=== PATIENT | female | born 1935 | race Asian ===

== ENCOUNTER 2018-12-31 15:38 | Inpatient (IN) | payer OTHER, MEDICAID ==
[~2018-12-31] VITALS: Ht 154.9 cm; Wt 55.8 kg
[2018-12-31 15:41] VITALS: BP 118/56
--- NOTE | 2018-12-31 15:41 | NUR ---
[facility] FOR [facility]/O RASH THROUGHOUT THE ABD AND TO THE GROIN REGION. PT IS APHASIC, SLIGHT FACIAL GRIMICING. AOX1, UNABLE TO MAKE HER NEEDS KNOWN. TO SEE THE PT. WILL CONTINUUE TO MONITOR PT.
--- NOTE | 2018-12-31 15:41 | NUR ---
BIBA TO BED 7
[2018-12-31] MEDS ORDERED: NACL 0.9% 1,000 ML IV SCH (16:58)
[2018-12-31] MEDS ORDERED: methylPREDNISolone SS 125 MG/2 ML VIAL IVP ONE (17:00)
[2018-12-31] MEDS ORDERED: ONDANSETRON 4 MG/2 ML VIAL IVP ONE (17:00)
[2018-12-31] MEDS ORDERED: ALBUTEROL 0.083% 2.5 MG/3 ML NEBU INH ONE (17:00)
[2018-12-31] MEDS ORDERED: FAMOTIDINE 20 MG/2 ML VIAL IVP ONE (17:00)
[2018-12-31] MEDS ORDERED: diphenhydrAMINE 50 MG/ML VIAL IVP ONE (17:00)
--- NOTE | 2018-12-31 17:19 | NUR ---
[facility] THERAPY AND RESPIRATORY DRUGS GIVEN ORDERED
[2018-12-31] MEDS ORDERED: ACET-2619 PO (17:37)
[2018-12-31] MEDS ORDERED: ATOR40TA PO (17:37)
[2018-12-31] MEDS ORDERED: AMLO10TA4 PO (17:37)
[2018-12-31] MEDS ORDERED: CILO100T PO (17:37)
[2018-12-31] MEDS ORDERED: BISA-213 RC (17:37)
[2018-12-31] MEDS ORDERED: CLIN300C2 PO (17:37)
[2018-12-31] MEDS ORDERED: CLOP75TA26 PO (17:37)
[2018-12-31] MEDS ORDERED: BEN50 PO (17:37)
[2018-12-31] MEDS ORDERED: MAGN400S60 PO (17:37)
[2018-12-31 18:21] LABS: ALBUMIN 3.3 g/dL (3.4-5.0); ANION GAP 16.8 (8-16); ASPARTATE AMINOTRANSFERASE 25 U/L (15-37); CHLORIDE 111 mmol/L (98-107); GLUCOSE 109 mg/dL (74-106); SODIUM SERUM 152 mmol/L (136-145); TOTAL BILIRUBIN 0.7 mg/dL (0.0-1.0); UREA NITROGEN, BLOOD 16 mg/dL (7-18)
--- NOTE | 2018-12-31 18:25 | NUR ---
STRAIGHT CAT DONE IN PT. URINE COLLECTED AND GIVEN TO NURSE QUALITY.
[2018-12-31 18:29] LABS: ACETONE, SERUM NEGATIVE (NEGATIVE)
[2018-12-31 18:38] LABS: POTASSIUM 2.8 mmol/L (3.5-5.1)
[2018-12-31 18:47] LABS: BASOPHILS # (AUTO) 0.1 K/uL (0.00-0.22); BASOPHILS % (AUTO) 0.4 % (0.0-2.0); EOSINOPHILS # (AUTO) 0.1 K/uL (0-0.4); EOSINOPHILS % (AUTO) 0.5 % (0.0-4.0); HEMATOCRIT 45.1 % (36-48); HEMOGLOBIN 14.7 g/dL (12.0-16.0); LYMPHOCYTES # (AUTO) 4.4 K/uL (2.5-16.5); LYMPHOCYTES % (AUTO) 22.7 % (20.5-51.1); MEAN CORPUSCULAR HEMOGLOBIN 30 pg (27-31); MEAN CORPUSCULAR HGB CONC 33 g/dL (33-37); MEAN CORPUSCULAR VOLUME 92.7 fL (80-94); MONOCYTES # (AUTO) 1.4 K/uL (0.8-1.0); MONOCYTES % (AUTO) 7.5 % (1.7-9.3); NEUTROPHILS # (AUTO) 13.3 K/uL (1.8-7.7); NEUTROPHILS % (AUTO) 68.9 % (42.2-75.2); PLATELET COUNT (AUTO) 362 K/uL (140-450); RED BLOOD CELL COUNT(AUTO) 4.86 MIL/uL (4.20-5.40); RED CELL DISTRIBUTION WIDTH 14.5 % (11.6-13.7)
[2018-12-31 18:53] LABS: WHITE BLOOD COUNT (AUTO) 19.2 K/uL (4.8-10.8)
--- NOTE | 2018-12-31 18:58 | NUR ---
pt taken to ct at this time
[2018-12-31 19:05] LABS: APPEARANCE,URINE SL CLOUDY (CLEAR); BILIRUBIN,URINE 1+ (NEGATIVE); BLOOD, URINE NEGATIVE (NEGATIVE); COLOR,URINE YELLOW (YELLOW); LEUKOCYTE ESTERASE ,URINE TRACE (NEGATIVE); NITRITE, URINE NEGATIVE (NEGATIVE); UGLUCOSE NEGATIVE (NEGATIVE)
--- NOTE | 2018-12-31 19:05 | NUR ---
REPORT GIVEN TO TAIWO CARLOS. PT STABLE. PENDING FOR ADMIT.
--- NOTE | 2018-12-31 19:09 | NUR ---
PT RETURN FROM CT
[2018-12-31 19:26] LABS: FREE T4 (FREE THYROXINE) 1.05 ng/dL (0.76-1.46); THYROID STIMULATING HORMONE 0.26 uIU/mL (0.34-3.74)
[2018-12-31 20:20] VITALS: BP 137/37
--- NOTE | 2018-12-31 20:20 | NUR ---
REPORT GIVEN AND CARE TRANSFERED TO [facility] ROOM 124B. TRANSFERED VIA RNEY WITH VSS. PT NON-VERBAL. FOLLOWS COMMANDS. MAKES EYE CONTACT.
--- NOTE | 2018-12-31 20:20 | NUR ---
PT ARRIVED TO UNIT VIA GURNEY AND WAS TRANSFERRED TO UNIT BED WITH ASSISTANCE. RECEIVED REPORT FROM ER NURSE TERRANCE-TAIWO AT BEDSIDE. PT RESTING IN BED, AOX1- NON-VERBAL FOLLOWS SOME COMMANDS AND APHASIC, ON ROOM AIR WITH RIGHT HAND #22G. 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 RED RASH ON BODY (ANTERIOR AND POSTERIOR) AND BEATRIS/ANAL AREA. NON AMBULATORY-BEDBOUND. VITAL SIGNS TAKEN AND TOLERATED WELL. MRSA SWAB COLLECTED. DISCUSSED PLAN OF CARE HOWEVER PT DID NOT INDICATE UNDERSTANDING. NO S/S OF RESPIRATORY DISTRESS OR DISCOMFORT NOTED AT THIS TIME. BED IN LOWEST POSITION, BED BREAKS ON, BOTH SIDE RAILS UP AND FALL PRECAUTIONS IN PLACE. BEDSIDE TABLE AND CALL LIGHT ARE WITHIN REACH. WILL CONTINUE TO MONITOR.
[2018-12-31] MEDS ORDERED: KCL 20 MEQ/WATER INJ PREMIX 200 ML IV SCH (21:25)
--- NOTE | 2018-12-31 21:41 | NUR ---
SPOKE WITH SARAH TORRES AND MADE HIM AWARE OF LACTIC ACID 3.0, TROPONIN 0.608, AND POTASSIUM 2.8. RECEIVED ORDERS TO ADMINISTER K RIDER 40MEQ IV. MEDICATION ADMINISTERED AND TOLERATED WELL. ALSO RECEIVED ORDERS TO PLACE PT UNDER DNR CODE STATUS AND CCHO 60GM DIET DUE TO DM. MD IS TO PLACE HOME MEDS LATER. NO S/S OF RESPIRATORY DISTRESS OR DISCOMFORT NOTED AT THIS TIME. WILL CONTINUE TO MONITOR.
[2018-12-31] MEDS ORDERED: diphenhydrAMINE 50 MG CAP PO SCH (22:25)
[2018-12-31] MEDS ORDERED: ACETAMINOPHEN 325 MG TAB PO PRN (22:25)
[2018-12-31] MEDS ORDERED: NON-FORMULARY ITEM (Bisacodyl (Dulcolax) 10 MG) RC SCH (22:25)
--- NOTE | 2018-12-31 22:26 | NUR ---
CALLED SARAH TORRES REGARDING INCREASING LACTIC ACID TO 4.9- RECEIVED ORDERS FOR LACTATED RINGERS @100ML/HR AND FIRST DOSE OF LEVAQUIN 500MG AT 100ML/HR. WILL NEED NEW IV SITE.
[2018-12-31] MEDS ORDERED: LORazepam 2 MG/ML VIAL IVP PRN (22:30)
[2018-12-31] MEDS ORDERED: INSULIN LISPRO SLIDING SCALE 100 UNITS/ML VIAL SUBQ PRN (22:30)
[2018-12-31] MEDS ORDERED: DEXTROSE 50% 50 ML SYR IVP PRN (22:30)
[2018-12-31] MEDS ORDERED: HYDROcodone/APAP 5/325 MG 1 TAB TAB PO PRN (22:30)
[2018-12-31] MEDS ORDERED: ONDANSETRON 4 MG/2 ML VIAL IVP PRN (22:30)
[2018-12-31] MEDS ORDERED: LEVOFLOXACIN 500 MG/D5W PREMIX 100 ML IV SCH (23:00)
[2018-12-31] MEDS: LACTATED RINGERS 1,000 ML IV SCH (23:24)
--- NOTE | 2018-12-31 23:24 | NUR ---
NEW IV SITE ON RIGHT FA #22G. LACTATED RINGERS AND LEVAQUIN ADMINISTER ON THIS NEW IV SITE. PT TOLERATING WELL. NO S/S OF RESPIRATORY DISTRESS OR DISCOMFORT NOTED AT THIS TIME. WILL CONTINUE TO MONITOR.
[2018-12-31 23:37] LABS: CREATINE KINASE MB 5.5 ng/mL (0-3.6)
--- NOTE | 2018-12-31 23:48 | NUR ---
SECOND BAG OF K RIDER GIVEN AND TOLERATING WELL. NO S/S OF RESPIRATORY DISTRESS OR DISCOMFORT NOTED AT THIS TIME. WILL CONTINUE TO MONITOR.
[2019-01-01] VITALS: BP 91/55
--- NOTE | 2019-01-01 | NUR ---
VITAL SIGNS TAKEN AND TOLERATED WELL. NO S/S OF RESPIRATORY DISTRESS OR DISCOMFORT NOTED AT THIS TIME. WILL CONTINUE TO MONITOR.
--- NOTE | 2019-01-01 02:00 | NUR ---
PT SLEEPING IN BED. NO S/S OF RESPIRATORY DISTRESS OR DISCOMFORT NOTED AT THIS TIME. WILL CONTINUE TO MONITOR.
[2019-01-01 04:00] VITALS: BP 143/55
--- NOTE | 2019-01-01 04:00 | NUR ---
VITAL SIGNS TAKEN AND TOLERATED WELL. NO S/S OF RESPIRATORY DISTRESS OR DISCOMFORT NOTED AT THIS TIME. WILL CONTINUE TO MONITOR.
[2019-01-01] MEDS: BLOOD GLUCOSE MONITORING 1 DEV DEV FS SCH ×4 (06:17→20:14)
--- NOTE | 2019-01-01 06:17 | NUR ---
BLOOD GLUCOSE 121- NO INSULIN COVERAGE NEEDED.
--- NOTE | 2019-01-01 07:05 | NUR ---
RECEIVED BEDSIDE REPORT FROM TAIWO QUIROZ. PATIENT ON TELE MONITOR AND STANDARD PRECAUTIONS IN PLACE. PATIENT AAOX1 AND ON ROOM AIR, NO DISTRESS NOTED. PATIENT BEDREST, INCONTINENT, AND RASH ON R UPPER ABDOMEN SPREADING TO BACK. IV ON L H 22G AND L FA 22G BOTH PATENT AND INTACT. BED IN LOW POSITION, CALL LIGHT WITHIN REACH, SIDE RAILS X2 UP
[2019-01-01 07:37] LABS: BASOPHILS % (AUTO) 0.2 % (0.0-2.0); EOSINOPHILS % (AUTO) 0.1 % (0.0-4.0); HEMATOCRIT 41.5 % (36-48); HEMOGLOBIN 13.5 g/dL (12.0-16.0); LYMPHOCYTES # (AUTO) 1.3 K/uL (2.5-16.5); MEAN CORPUSCULAR HEMOGLOBIN 30 pg (27-31); MEAN CORPUSCULAR HGB CONC 32 g/dL (33-37); MEAN CORPUSCULAR VOLUME 92.6 fL (80-94); MONOCYTES # (AUTO) 0.3 K/uL (0.8-1.0); NEUTROPHILS # (AUTO) 12.8 K/uL (1.8-7.7); NEUTROPHILS % (AUTO) 88.7 % (42.2-75.2); PLATELET COUNT (AUTO) 303 K/uL (140-450); RED BLOOD CELL COUNT(AUTO) 4.48 MIL/uL (4.20-5.40); RED CELL DISTRIBUTION WIDTH 14.5 % (11.6-13.7); WHITE BLOOD COUNT (AUTO) 14.5 K/uL (4.8-10.8)
[2019-01-01] MEDS ORDERED: MAGNESIUM HYDROXIDE 2400 MG/30 ML UDC PO PRN (07:47)
[2019-01-01] MEDS ORDERED: BISACODYL 10 MG SUPP RC PRN (07:50)
[2019-01-01 08:00] VITALS: BP 121/58
[2019-01-01] MEDS: LACTATED RINGERS 1,000 ML IV SCH (08:26)
--- NOTE | 2019-01-01 08:48 | NUR ---
PATIENT HAS BEEN SCREENED AND CATEGORIZED MODERATE NUTRITION RISK. PATIENT WILL BE SEEN WITHIN 3-5 DAYS OF ADMISSION. 01/03/19PRASANNA [address]
[2019-01-01 08:55] LABS: ANION GAP 15.5 (8-16); CARBON DIOXIDE 24.1 mmol/L (21-32); CHLORIDE 115 mmol/L (98-107); GLUCOSE 121 mg/dL (74-106); POTASSIUM 3.6 mmol/L (3.5-5.1); SODIUM SERUM 151 mmol/L (136-145)
[2019-01-01 08:56] LABS: ALBUMIN 2.7 g/dL (3.4-5.0); ASPARTATE AMINOTRANSFERASE 22 U/L (15-37); CREATININE 0.7 mg/dL (0.6-1.3); MAGNESIUM 2.2 mg/dL (1.8-2.4); PHOSPHORUS 2.6 mg/dL (2.5-4.9); TOTAL BILIRUBIN 0.4 mg/dL (0.0-1.0); UREA NITROGEN, BLOOD 11 mg/dL (7-18)
[2019-01-01 08:58] LABS: CREATINE KINASE MB 5.9 ng/mL (0-3.6)
[2019-01-01] MEDS ORDERED: CILOSTAZOL 100 MG PO SCH (09:00)
[2019-01-01] MEDS: CILOSTAZOL 100 MG TAB PO SCH ×3 (10:16→20:47)
[2019-01-01] MEDS: CLOPIDOGREL 75 MG TAB PO SCH (10:16)
[2019-01-01] MEDS: methylPREDNISolone SS 40 MG/ML VIAL IVP SCH ×2 (10:17→20:14)
[2019-01-01] MEDS: amLODIPine 5 MG TAB PO SCH (10:17)
--- NOTE | 2019-01-01 10:27 | NUR ---
ADMINISTERED SCHEDULED MEDS. PATIENT TOLERATED WELL
[2019-01-01 12:00] VITALS: BP 148/45
--- NOTE | 2019-01-01 12:20 | NUR ---
PATIENT SLEEPING, ON ROOM AIR, NO DISTRESS NOTED
[2019-01-01] MEDS: NACL 0.45% 1,000 ML IV SCH (13:13)
--- NOTE | 2019-01-01 14:00 | NUR ---
PATIENT ON R SIDE LYING POSITION, ON ROOM AIR, NO DISTRESS NOTED
[2019-01-01 16:00] VITALS: BP 126/39
--- NOTE | 2019-01-01 17:09 | NUR ---
REPOSITIONED PATIENT. PATIENT ON ROOM AIR AND CRYING, UNABLE TO EXPLAIN REASON, AAOX1
--- NOTE | 2019-01-01 19:04 | NUR ---
GAVE BEDSIDE REPORT TO TAIWO QUIROZ. PATIENT ENDORSED IN STABLE CONDITION
--- NOTE | 2019-01-01 19:05 | NUR ---
RECEIVED REPORT FROM DAY SHIFT NURSE DEVONTE-TAIWO AT BEDSIDE. PT RESTING IN BED, AOX1- NON-VERBAL FOLLOWS SOME COMMANDS AND APHASIC, ON ROOM AIR WITH RIGHT HAND #22G-SL AND RIGHT FA #22G- RUNNING NS @75ML/HR/. 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 RED RASH ON BODY (ANTERIOR AND POSTERIOR) AND BEATRIS/ANAL AREA. NON AMBULATORY-BEDBOUND. DISCUSSED PLAN OF CARE AND PT NODDED HEAD UP AND DOWN TO INDICATE UNDERSTANDING. NO S/S OF RESPIRATORY DISTRESS OR DISCOMFORT NOTED AT THIS TIME. BED IN LOWEST POSITION, BED BREAKS ON, BOTH SIDE RAILS UP AND FALL PRECAUTIONS IN PLACE. BEDSIDE TABLE AND CALL LIGHT ARE WITHIN REACH. WILL CONTINUE TO MONITOR.
[2019-01-01 20:00] VITALS: BP 132/44
--- NOTE | 2019-01-01 20:00 | NUR ---
VITAL SIGNS TAKEN AND TOLERATED WELL. BLOOD GLUCOSE 134- NO INSULIN COVERAGE NEEDED. NO S/S OF RESPIRATORY DISTRESS OR DISCOMFORT NOTED AT THIS TIME. WILL CONTINUE TO MONITOR.
[2019-01-01] MEDS: LEVOFLOXACIN 250 MG/D5 PREMIX 50 ML IV SCH (20:14)
[2019-01-01] MEDS: ATORVASTATIN 20 MG TAB PO SCH ×2 (20:14→20:47)
--- NOTE | 2019-01-01 20:14 | NUR ---
SCHEDULED MEDICATIONS LEVAQUIN AND SOLU-MEDROL GIVEN. CRUSHED LIPITOR AND PLETAL HOWEVER PT REFUSED TO TAKE MEDICATIONS- MEDICATIONS WASTED. RIGHT HAND IV SITE WOULD NOT FLUSH AND CAUSED PAIN. UPON UNBANDAGING SITE, CATHETER WAS BENT AND EXPOSED. REMOVED RIGHT HAND #22G IV SITE- CATHETER INTACT. PT TOLERATED WELL WITH MINIMAL BLEEDING. NO S/S OF RESPIRATORY DISTRESS OR DISCOMFORT NOTED AT THIS TIME. WILL CONTINUE TO MONITOR.
--- NOTE | 2019-01-01 22:00 | NUR ---
PT SLEEPING IN BED. NO S/S OF RESPIRATORY DISTRESS OR DISCOMFORT NOTED AT THIS TIME. WILL CONTINUE TO MONITOR.
[2019-01-02] VITALS: BP 134/42
--- NOTE | 2019-01-02 | NUR ---
VITAL SIGNS TAKEN AND TOLERATED WELL. NO S/S OF RESPIRATORY DISTRESS OR DISCOMFORT NOTED AT THIS TIME. WILL CONTINUE TO MONITOR.
[2019-01-02] MEDS: NACL 0.45% 1,000 ML IV SCH ×2 (02:00→04:00)
--- NOTE | 2019-01-02 02:00 | NUR ---
PT SLEEPING IN BED AT THIS TIME. NO S/S OF RESPIRATORY DISTRESS OR DISCOMFORT NOTED AT THIS TIME. WILL CONTINUE TO MONITOR.
[2019-01-02 04:00] VITALS: BP 142/37
--- NOTE | 2019-01-02 04:00 | NUR ---
VITAL SIGNS TAKEN AND TOLERATED WELL. NEW IVF BAG HUNG AND TOLERATED WELL. NO S/S OF RESPIRATORY DISTRESS OR DISCOMFORT NOTED AT THIS TIME. WILL CONTINUE TO MONITOR.
--- NOTE | 2019-01-02 06:00 | NUR ---
PT SLEEPING IN BED AT THIS TIME. NO S/S OF RESPIRATORY DISTRESS OR DISCOMFORT NOTED AT THIS TIME. WILL CONTINUE TO MONITOR.
[2019-01-02] MEDS: BLOOD GLUCOSE MONITORING 1 DEV DEV FS SCH ×4 (06:27→21:06)
--- NOTE | 2019-01-02 06:28 | NUR ---
BLOOD GLUCOSE 120- NO INSULIN COVERAGE NEEDED.
[2019-01-02 06:46] LABS: BASOPHILS % (AUTO) 0.1 % (0.0-2.0); HEMATOCRIT 38.9 % (36-48); HEMOGLOBIN 12.7 g/dL (12.0-16.0); LYMPHOCYTES # (AUTO) 1.3 K/uL (2.5-16.5); LYMPHOCYTES % (AUTO) 9.2 % (20.5-51.1); MEAN CORPUSCULAR HEMOGLOBIN 30 pg (27-31); MEAN CORPUSCULAR HGB CONC 33 g/dL (33-37); MEAN CORPUSCULAR VOLUME 91.8 fL (80-94); MONOCYTES # (AUTO) 0.5 K/uL (0.8-1.0); MONOCYTES % (AUTO) 3.1 % (1.7-9.3); NEUTROPHILS # (AUTO) 12.7 K/uL (1.8-7.7); NEUTROPHILS % (AUTO) 87.6 % (42.2-75.2); PLATELET COUNT (AUTO) 322 K/uL (140-450); RED BLOOD CELL COUNT(AUTO) 4.24 MIL/uL (4.20-5.40); RED CELL DISTRIBUTION WIDTH 14.4 % (11.6-13.7); WHITE BLOOD COUNT (AUTO) 14.5 K/uL (4.8-10.8)
[2019-01-02 07:10] LABS: ANION GAP 11.9 (8-16); CARBON DIOXIDE 27.5 mmol/L (21-32); CHLORIDE 112 mmol/L (98-107); CREATININE 0.7 mg/dL (0.6-1.3); GLUCOSE 125 mg/dL (74-106); POTASSIUM 3.4 mmol/L (3.5-5.1); SODIUM SERUM 148 mmol/L (136-145); UREA NITROGEN, BLOOD 9 mg/dL (7-18)
--- NOTE | 2019-01-02 07:10 | NUR ---
RECEIVED BEDSIDE REPORT FROM TAIWO QUIROZ. PATIENT AAOX1, NONVERBAL, FOLLOWS SOME COMMANDS. PATIENT ON TELE MONITOR AND STANDARD PRECAUTIONS IN PLACE. PATIENT ON ROOM AIR, RASHES ACROSS ABDOMEN AND BEATRIS AREA, UNABLE TO AMBULATE AND INCONTINENT. IV ON L FA 22G INFUSING 0.9% NS AT 75, IV PATENT AND INTACT. FALL RISK PROTOCOL IN PLACE, BED IN LOW POSITION, CALL LIGHT WITHIN REACH, SIDE RAILS X2 UP
[2019-01-02 07:24] LABS: PHOSPHORUS 2.4 mg/dL (2.5-4.9)
[2019-01-02 08:00] VITALS: BP 111/34
[2019-01-02] MEDS: CILOSTAZOL 100 MG TAB PO SCH ×2 (08:35→20:11)
[2019-01-02] MEDS: CLOPIDOGREL 75 MG TAB PO SCH (08:35)
[2019-01-02] MEDS: amLODIPine 5 MG TAB PO SCH (08:35)
[2019-01-02] MEDS: methylPREDNISolone SS 40 MG/ML VIAL IVP SCH ×2 (08:36→20:10)
--- NOTE | 2019-01-02 08:45 | NUR ---
DR. BANKS AT BEDSIDE, NOTIFIED OF K 3.4 AND OF PATIENT DROOLING WHILE EATING. ADMINISTERED SCHEDULED MEDS
[2019-01-02] MEDS ORDERED: POTASSIUM PHOSPHATE 15 MM in NACL 0.9% 250 ML IV SCH (09:30)
--- NOTE | 2019-01-02 10:01 | NUR ---
ADMINISTERED POTASSIUM PHOSPHATE FOR K 3.4. PATIENT SLEEPING, ON ROOM AIR, NO DISTRESS NOTED
[2019-01-02] MEDS: CHLORHEXADINE GLUC 2% CLOTH TP SCH (11:00)
[2019-01-02 12:00] VITALS: BP 118/39
[2019-01-02] MEDS: MUPIROCIN CA NASAL 2% 1GM TUBE NS SCH (12:59)
--- NOTE | 2019-01-02 12:59 | NUR ---
PATIENT TOLERATED HER LUNCH MUCH BETTER THAN YESTERDAY PER JOB GOMES. WILL ADMINISTER SCHEDULED MEDS
--- NOTE | 2019-01-02 13:58 | NUR ---
ADMINISTERED BENADRYL PRN FOR ITCHING AND RASH
[2019-01-02 16:00] VITALS: BP 115/35
--- NOTE | 2019-01-02 16:00 | NUR ---
PATIENT SLEEPING, ON ROOM AIR, NO DISTRESS NOTED
--- NOTE | 2019-01-02 19:26 | NUR ---
GAVE BEDSIDE REPORT TO TAIWO QUIÑONES. PATIENT ENDORSED IN STABLE CONDITION
--- NOTE | 2019-01-02 19:28 | NUR ---
RECEIVED PT FROM DONITA [facility]AVILL[facility] PT NON VERBAL, BED BOUND, RT ARM WEAKNESS , PT CAN MOVE LEFT ARM IV ;ON LEFT FA INFUSING WELL ON TELEMETRY SR , INVERTED T , PT HAS A GENERALIZED BODY RASH, REPOSITIONED , NOT DISTRESS NOTED , INITIAL ASSESSMENT DONE
[2019-01-02 20:00] VITALS: BP 106/43
[2019-01-02] MEDS: LEVOFLOXACIN 250 MG/D5 PREMIX 50 ML IV SCH (20:09)
[2019-01-02] MEDS: ATORVASTATIN 20 MG TAB PO SCH (20:11)
--- NOTE | 2019-01-02 21:30 | NUR ---
BLOOD SUGAR TEST WAS 94 PT REMAIN QUIET, REPOSITIONED Q2H LINEN CHANGED ON TELEMETRY SR INVERTED T
[2019-01-03] VITALS: BP 143/87
--- NOTE | 2019-01-03 | NUR ---
SPONGE BATH, GIVEN LINEN CHANGED NOT DISTRESS NOTED
[2019-01-03] MEDS: NACL 0.45% 1,000 ML IV SCH (01:10)
--- NOTE | 2019-01-03 03:00 | NUR ---
PT AWAKE, REPOSITIONED Q2H, IV ON LEFT FA INFUSING WELL, ON TELEMETRY SR , AND T DEPRESSION
[2019-01-03 04:00] VITALS: BP 153/52
--- NOTE | 2019-01-03 05:20 | NUR ---
LINEN CHANGED, REPOSITIONED Q2H NOT DISTRESS NOTED
[2019-01-03] MEDS: BLOOD GLUCOSE MONITORING 1 DEV DEV FS SCH ×2 (06:39→11:50)
--- NOTE | 2019-01-03 06:41 | NUR ---
BLOOD SUGAR TEST 122 NOT COVERAGE, PT SLEEPING NOT DISTRESS NOTED ON TELMETRY SR T DEPRESSION
[2019-01-03 06:56] LABS: BASOPHILS % (AUTO) 0.1 % (0.0-2.0); HEMATOCRIT 39.4 % (36-48); HEMOGLOBIN 13.1 g/dL (12.0-16.0); LYMPHOCYTES # (AUTO) 1.2 K/uL (2.5-16.5); LYMPHOCYTES % (AUTO) 12.1 % (20.5-51.1); MEAN CORPUSCULAR HEMOGLOBIN 30 pg (27-31); MEAN CORPUSCULAR HGB CONC 33 g/dL (33-37); MEAN CORPUSCULAR VOLUME 91.3 fL (80-94); MONOCYTES # (AUTO) 0.3 K/uL (0.8-1.0); MONOCYTES % (AUTO) 2.7 % (1.7-9.3); NEUTROPHILS # (AUTO) 8.5 K/uL (1.8-7.7); NEUTROPHILS % (AUTO) 85.1 % (42.2-75.2); PLATELET COUNT (AUTO) 317 K/uL (140-450); RED BLOOD CELL COUNT(AUTO) 4.32 MIL/uL (4.20-5.40); RED CELL DISTRIBUTION WIDTH 13.6 % (11.6-13.7)
[2019-01-03 07:01] LABS: ANION GAP 12.8 (8-16); CARBON DIOXIDE 25.6 mmol/L (21-32); CHLORIDE 108 mmol/L (98-107); CREATININE 0.6 mg/dL (0.6-1.3); GLUCOSE 131 mg/dL (74-106); POTASSIUM 3.4 mmol/L (3.5-5.1); SODIUM SERUM 143 mmol/L (136-145); UREA NITROGEN, BLOOD 10 mg/dL (7-18)
--- NOTE | 2019-01-03 07:05 | NUR ---
RECEIVED BEDSIDE REPORT FROM TAIWO QUIÑONES. PATIENT ON TELE MONITOR AND STANDARD PRECAUTIONS IN PLACE. PATIENT AAOX1, APHASIC AND ON BEDREST. GENERALIZED RASH OVER ABDOMEN AND BEATRIS/ANAL AREA. FALL RISK PROTOCOL IN PLACE. PATIENT ON ROOM AIR, NO DISTRESS NOTED. IV ON L FA 22G INFUSING 1/2 NS AT 40, IV PATENT AND INTACT. BED IN LOW POSITION, CALL LIGHT WITHIN REACH, SIDE RAILS X2 UP
[2019-01-03 07:30] LABS: MAGNESIUM 1.9 mg/dL (1.8-2.4); PHOSPHORUS 2.8 mg/dL (2.5-4.9)
[2019-01-03 08:00] VITALS: BP 134/35
[2019-01-03] MEDS ORDERED: POTASSIUM CHLORIDE 10 MEQ TABER PO SCH (08:00)
[2019-01-03] MEDS: CLOPIDOGREL 75 MG TAB PO SCH (09:00)
[2019-01-03] MEDS: CILOSTAZOL 100 MG TAB PO SCH (09:00)
[2019-01-03] MEDS: amLODIPine 5 MG TAB PO SCH (09:00)
--- NOTE | 2019-01-03 09:00 | NUR ---
CALLED GRAND DAUGHTER YON [place] LEFT A MESSAGE REGARDING PATIENT WILL BE DISCHARGED BACK TO [facility] AND IF SHE HAS ANY CONCERN TO CALL BACK
[2019-01-03] MEDS: methylPREDNISolone SS 40 MG/ML VIAL IVP SCH (09:07)
--- NOTE | 2019-01-03 09:09 | NUR ---
ADMINISTERED SCHEDULED MED SOLUMEDROL. PATIENT REFUSED TO TAKE PO MEDS WITH APPLE SAUCE. PATIENT DID NOT OPEN HER MOUTH AND WAS SHAKING HER HEAD
--- NOTE | 2019-01-03 10:24 | NUR ---
CALLED [facility] SPOKE WITH [facility] TO ARRANGE TRANSPORT ,PER [facility] CONFIRMATION #[id number] ONCE THEY SCHEDULE THE TRANSPORT WILL CALL BACK.
--- NOTE | 2019-01-03 11:26 | NUR ---
BAG CHECKER note 11:26 BAG CHECKER came to provide bedside swallow evaluation. BAG CHECKER d/w RN (Sisi). BAG CHECKER positioned pt fully upright in bed using HOB elevation and bed tilt functions. BAG CHECKER attempted to provide PO trials; however, pt refused to participate with any PO trials at this time, despite multiple encouragements and education provided by BAG CHECKER. Pt repeatedly kept lips closed and turned head away from PO trial presentations. BAG CHECKER returned pt to low/locked bed position with HOB about 40 degrees at end of bedside swallow evaluation attempt. BAG CHECKER d/w RN. Pt to be discharged back to SNF today. SNF BAG CHECKER to f/u for bedside swallow evaluation, as appropriate. (If pt not discharged back to SNF today, then BAG CHECKER to f/u to reattempt to provide bedside swallow evaluation here in hospital, as pt willing/able to participate safely, as appropriate.)
--- NOTE | 2019-01-03 11:46 | NUR ---
RECEIVED A CALL FROM [facility] THAT ARRANGED TRANSPORT WITH [facility] TIME IS 1:30 PM NOTIFIED DEVONTE MARAVILLA
--- NOTE | 2019-01-03 11:49 | NUR ---
PATIENT ON L SIDE LYING POSITION, SLEEPING, ON ROOM AIR, NO DISTRESS NOTED
[2019-01-03] MEDS: CHLORHEXADINE GLUC 2% CLOTH TP SCH (11:51)
[2019-01-03] MEDS: MUPIROCIN CA NASAL 2% 1GM TUBE NS SCH (11:51)
[2019-01-03 12:00] VITALS: BP 131/64
--- NOTE | 2019-01-03 12:28 | NUR ---
GAVE TELEPHONE REPORT TO [facility] NURSEJACOB PHONE #[phone]. SHE IS AWARE PATIENT WILL BE UNDER Peter TORRES IN ROOM 1111 IN STATION 1 AND PICKUP TIME AT 1300. ANSWERED ALL QUESTIONS AND CONCERNS AND PROVIDED WITH CALL BACK NUMBER
--- NOTE | 2019-01-03 13:35 | NUR ---
[facility] HERE. THEY HAVE PAPERWORK. PATIENT UNABLE TO SIGN DISCHARGE INSTRUCTIONS. SKIN INTACT, EXCEPT FOR GENERALIZED RASH IN TRUNK OF BODY AND BEATRIS/ANAL AREA. PATIENT RETURNING TO [facility] UNDER SARAH TORRES. REMOVED WRIST BANDS AND IV, IV TIP INTACT. PATIENT WITH ALL BELONGINGS AND COPY OF DISCHARGE PAPERWORK Addendum: 01/03/19 at 1355 by Sisi Garces RN PNA VACCINE UP TO DATE PER FACILITY, NOT SPECIFIC ON DATE
== END 2019-01-03 13:30 | DRG 607 ==
LOC: MED 15:38 → MTU 19:51
PROVIDERS: ADMIT Preventive Medicine Preventive Medicine/Occupational Environmental Medicine; ATTEND Preventive Medicine Preventive Medicine/Occupational Environmental Medicine
DX: L27.0 Generalized skin eruption due to drugs and medicaments taken internally (principal); E44.0 Moderate protein-calorie malnutrition; E87.0 Hyperosmolality and hypernatremia; I48.92 Unspecified atrial flutter; I69.351 Hemiplegia and hemiparesis following cerebral infarction affecting right dominant side; E87.2 Acidosis; E87.1 Hypo-osmolality and hyponatremia; R65.10 Systemic inflammatory response syndrome (SIRS) of non-infectious origin without acute organ dysfunction; E87.6 Hypokalemia; E78.5 Hyperlipidemia, unspecified; E11.65 Type 2 diabetes mellitus with hyperglycemia; I10 Essential (primary) hypertension; E83.39 Other disorders of phosphorus metabolism; E83.51 Hypocalcemia; I25.10 Atherosclerotic heart disease of native coronary artery without angina pectoris; Z79.899 Other long term (current) drug therapy; E87.8 Other disorders of electrolyte and fluid balance, not elsewhere classified; E86.0 Dehydration; T38.0X5A Adverse effect of glucocorticoids and synthetic analogues, initial encounter; R21 Rash and other nonspecific skin eruption; Z22.322 Carrier or suspected carrier of Methicillin resistant Staphylococcus aureus; Z88.0 Allergy status to penicillin; Z95.1 Presence of aortocoronary bypass graft; Z88.8 Allergy status to other drugs, medicaments and biological substances; Z68.23 Body mass index [BMI] 23.0-23.9, adult; Y92.89 Other specified places as the place of occurrence of the external cause; E83.52 Hypercalcemia; E87.5 Hyperkalemia
CPT/HCPCS: 36415; 70450; 71045; 80048; 80053; 81003; 82009; 82550; 82553; 82948; 83605; 83735; 83880; 84100; 84439; 84443; 84479; 84484; 85025; 85651; 86140; 87040; 87081; 87086; 93005; 94640; 96361; 96374; 96375; 97110; 97530; 99285; C1758; J1200; J1815; J1956; J2405; J2920; J2930; J3480; J3490; J7030; J7120; J7613; Q0092; Q0163